=== PATIENT | female | born 1990 | race Caucasian/White ===

== ENCOUNTER 2020-08-21 18:38 | Emergency (ER) | payer MEDICAID ==
[~2020-08-21] VITALS: Ht 167.6 cm; Wt 127.0 kg
[2020-08-21 18:46] VITALS: BP 132/80
[2020-08-21] MEDS ORDERED: KETOROLAC 30 MG/ML VIAL IM ONE (20:05)
[2020-08-21 21:55] VITALS: BP 131/75
== END 2020-08-21 21:55 | disposition home or self-care (01) ==
LOC: MED 18:38
DX: R10.2 Pelvic and perineal pain (principal); N83.209 Unspecified ovarian cyst, unspecified side; N80.9 Endometriosis, unspecified; Z98.890 Other specified postprocedural states
CPT/HCPCS: 76856; 81002; 81025; 96372; 99284; J1885; Q0092

== ENCOUNTER 2020-09-04 06:04 | Emergency (ER) | payer MEDICAID ==
[~2020-09-04] VITALS: Ht 165.1 cm; Wt 135.6 kg
[2020-09-04 06:15] VITALS: BP 124/82
--- NOTE | 2020-09-04 06:36 | NUR ---
29 Y/O F PRESENTS TO ED C/O NAUSEA X 3 DAYS. PT STATES THAT SHE ONLY VOMITED ONCE IN THAT 3 DAYS. DENIES TAKING ANY OTC MEDICATIONS. DENIES PAIN DURING ASSESSMENT. ABD SOFT, NON TENDER. RR EVEN AND UNLABORED. VSS. MHX: ECTOPIC , OVARIAN CYST, ASTHMA NKA
[2020-09-04] MEDS ORDERED: ONDANSETRON 4 MG ODT PO ONE (06:40)
--- NOTE | 2020-09-04 07:13 | NUR ---
SAKSHI NOVEL SWAB COLLECTED AND WALKED OVER TO LAB.
--- NOTE | 2020-09-04 07:18 | NUR ---
REPORT GIVEN TO ISABELLA NDIAYE FOR CONTINUITY OF CARE.
[2020-09-04 07:51] VITALS: BP 124/82
--- NOTE | 2020-09-04 07:51 | NUR ---
Patient discharged with v/s stable. Written and verbal after care instructions about nausea given and explained. Patient alert, oriented and verbalized understanding of instructions. Ambulatory with steady gait. All questions addressed prior to discharge. ID band removed. Patient advised to follow up with PMD. Rx of zofran given. Patient educated on indication of medication including possible reaction and side effects. Opportunity to ask questions provided and answered.
== END 2020-09-04 07:50 | disposition home or self-care (01) ==
LOC: MED 06:04
DX: R11.0 Nausea (principal); R43.8 Other disturbances of smell and taste; Z20.828 Contact with and (suspected) exposure to other viral communicable diseases
CPT/HCPCS: 81002; 81025; 99283; Q0162; U0003

== ENCOUNTER 2020-10-16 03:40 | Emergency (ER) | payer MEDICAID ==
[~2020-10-16] VITALS: Ht 167.6 cm; Wt 137.9 kg
[2020-10-16 03:56] VITALS: BP 118/68
--- NOTE | 2020-10-16 04:03 | NUR ---
PT AMBULATED TO RESTROOM W/ STEADY GAIT
--- NOTE | 2020-10-16 04:05 | NUR ---
URINE SAMPLE COLLECTED AT THIS TIME.
--- NOTE | 2020-10-16 04:05 | NUR ---
PT AMBULATED FROM RESTROOM TO ER BED 12 W/ STEADY GAIT.
--- NOTE | 2020-10-16 04:09 | NUR ---
29 Y/O FEMALE PRESENTED TO ED C/O OFF BALANCED PH. PT STATES SHE STARTED USING NEW SCENTED TOLIET PAPER AND THINKS HER PH IS OFF NOW. PT STATES SHE HAS A HX OF BACTERIAL VAGINOSIS , LAST EPISODE X 1 YR AGO. PT STATES SHE HAS NO DISCHARGE BUT DOES NOTE A FOUL ODOR . PT DENIES DYSURIA . PT STATES SHE DOES GET MILD PELVIC CRAMPING BUT DOES NOT CURRENTLY HAVE PAIN. PT IN BED, LOCKED AND IN LOWEST POSITION, HOB ELEVATED, SIDE RAIL X1. ERMD MADE AWARE OF PT STATUS. VSS. PMH: HYPOTHYROID , TUBAL PREG, OVARIAN CYST, ENDOMETRIOSIS NKA
--- NOTE | 2020-10-16 04:14 | NUR ---
ERMD AT BEDSIDE EVALUATING PT.
[2020-10-16 04:31] VITALS: BP 118/68
--- NOTE | 2020-10-16 04:31 | NUR ---
Patient discharged with v/s stable. Written and verbal after care instructions given and explained. Patient alert, oriented and verbalized understanding of instructions. Ambulatory with steady gait. All questions addressed prior to discharge. ID band removed. Patient advised to follow up with PMD. Rx of FLAGYL given. Patient educated on indication of medication including possible reaction and side effects. Opportunity to ask questions provided and answered.
== END 2020-10-16 04:31 | disposition home or self-care (01) ==
LOC: MED 03:40
DX: N89.8 Other specified noninflammatory disorders of vagina (principal); J45.909 Unspecified asthma, uncomplicated; Z71.6 Tobacco abuse counseling
CPT/HCPCS: 81002; 81025; 99281; 99283

== ENCOUNTER 2020-10-29 18:22 | Emergency (ER) | payer MEDICAID ==
[~2020-10-29] VITALS: Ht 167.6 cm; Wt 127.0 kg
[2020-10-29 18:54] VITALS: BP 121/83
[2020-10-29] MEDS ORDERED: KETOROLAC 30 MG/ML VIAL IM ONE (19:00)
--- NOTE | 2020-10-29 19:00 | NUR ---
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
[2020-10-29 19:28] VITALS: BP 121/83
== END 2020-10-29 19:28 | disposition home or self-care (01) ==
LOC: MED 18:22
DX: S39.012A Strain of muscle, fascia and tendon of lower back, initial encounter (principal); E03.9 Hypothyroidism, unspecified; J45.909 Unspecified asthma, uncomplicated; X58.XXXA Exposure to other specified factors, initial encounter; Y93.89 Activity, other specified; Y92.89 Other specified places as the place of occurrence of the external cause; Y99.8 Other external cause status
CPT/HCPCS: 96372; 99283; J1885

== ENCOUNTER 2021-02-13 19:44 | Emergency (ER) | payer MEDICAID ==
[~2021-02-13] VITALS: Ht 167.6 cm; Wt 141.1 kg
[2021-02-13 19:53] VITALS: BP 139/86
--- NOTE | 2021-02-13 20:00 | NUR ---
Pt ambulated to restroom w/ steady gait.
--- NOTE | 2021-02-13 20:06 | NUR ---
SEE COMPLETE ASSESSMENT
--- NOTE | 2021-02-13 20:10 | NUR ---
PT UNABLE TO VOID AT THIS TIME.
--- NOTE | 2021-02-13 20:14 | NUR ---
DR. MCNULTY AT BEDSIDE.
[2021-02-13] MEDS ORDERED: ONDANSETRON 4 MG/2 ML VIAL IVP ONE (20:20)
[2021-02-13] MEDS ORDERED: NACL 0.9% 1,000 ML IV ONE (20:20)
--- NOTE | 2021-02-13 20:40 | NUR ---
LABS DRAWN VIA IV START. BLOOD TAKEN TO THE LAB BY EMT.
[2021-02-13 20:55] LABS: BASOPHILS % (AUTO) 0.4 % (0.0-2.0); EOSINOPHILS # (AUTO) 0.3 K/uL (0-0.4); EOSINOPHILS % (AUTO) 3.6 % (0.0-4.0); HEMATOCRIT 36.3 % (36-48); LYMPHOCYTES # (AUTO) 1.6 K/uL (2.5-16.5); LYMPHOCYTES % (AUTO) 22.3 % (20.5-51.1); MEAN CORPUSCULAR HEMOGLOBIN 29 pg (27-31); MEAN CORPUSCULAR HGB CONC 33 g/dL (33-37); MONOCYTES # (AUTO) 0.5 K/uL (0.8-1.0); NEUTROPHILS # (AUTO) 4.8 K/uL (1.8-7.7); NEUTROPHILS % (AUTO) 66.7 % (42.2-75.2); PLATELET COUNT (AUTO) 293 K/uL (140-450); RED BLOOD CELL COUNT(AUTO) 4.22 MIL/uL (4.20-5.40); RED CELL DISTRIBUTION WIDTH 14.6 % (11.6-13.7); WHITE BLOOD COUNT (AUTO) 7.1 K/uL (4.8-10.8)
[2021-02-13 21:08] LABS: ALBUMIN 3.2 g/dL (3.4-5.0); ANION GAP 11.6 (8-16); CARBON DIOXIDE 27.3 mmol/L (21-32); CREATININE 0.8 mg/dL (0.6-1.3); POTASSIUM 3.9 mmol/L (3.5-5.1); TOTAL BILIRUBIN 0.3 mg/dL (0.0-1.0)
--- NOTE | 2021-02-13 21:14 | NUR ---
PT STILL UNABLE TO VOID AT THIS TIME. FLUID BOLUS RUNNING.
--- NOTE | 2021-02-13 21:41 | NUR ---
PT AMBULATORY TO RESTROOM TO PROVIDE URINE SPECIMEN
--- NOTE | 2021-02-13 21:42 | NUR ---
PT REPORTS FEELING LESS DIZZINESS BUT ENDORSES A MINOR HEADACHE AT THIS TIME. ERMD MADE AWARE.
--- NOTE | 2021-02-13 22:00 | NUR ---
PT PROVIDED URINE SPECIMEN AT THIS TIME BUT THERE WAS NOT ENOUGH URINE FOR AN UA. URINE DIPSTICK COMPLETED INSTEAD. KEV MCNULTY MADE AWARE.
[2021-02-13] MEDS ORDERED: KETOROLAC 30 MG/ML VIAL IVP ONE (22:05)
--- NOTE | 2021-02-13 22:37 | NUR ---
PT REPORTS 0/10 PAIN AND FEELING BETTER. WILL UPDATE ERMD.
[2021-02-13 23:00] VITALS: BP 105/52
--- NOTE | 2021-02-13 23:00 | NUR ---
IV removed, catheter intact and site benign. Applied folded 4x4 gauze and tape to stop bleeding.
--- NOTE | 2021-02-13 23:01 | NUR ---
Patient discharged with v/s stable. Written and verbal after care instructions given and explained. Patient verbalized understanding. Ambulatory with steady gait. All questions addressed prior to discharge. Advised to follow up with PMD.
== END 2021-02-13 23:00 | disposition home or self-care (01) ==
LOC: MED 19:44
DX: E86.0 Dehydration (principal); R11.0 Nausea; J45.909 Unspecified asthma, uncomplicated; E07.9 Disorder of thyroid, unspecified
CPT/HCPCS: 36415; 80053; 81002; 81025; 85025; 93005; 96361; 96374; 96375; 99284; J1885; J2405; J7030

== ENCOUNTER 2021-02-19 14:23 | Emergency (ER) | payer MEDICAID ==
[~2021-02-19] VITALS: Ht 167.6 cm; Wt 139.3 kg
[2021-02-19 14:33] VITALS: BP 114/54
--- NOTE | 2021-02-19 14:34 | NUR ---
PT AMBULATED TO BED 9 WITH STEADY GAIT.
--- NOTE | 2021-02-19 14:35 | NUR ---
30 F returning to the ED from visit one week ago with the same complaints of lightheaded and dizziness this time with increased nausea. She denies fever, chills, diarrhea, chest and abd pain. Pt reports relief when she eats. C/o L ear tinnunitus a few days ago. surghx: tubal pmh: endometriosis, PCOS, asthma NKA
--- NOTE | 2021-02-19 14:40 | NUR ---
ERPA at bedside.
[2021-02-19] MEDS ORDERED: NACL 0.9% 500 ML IV ONE (14:55)
[2021-02-19] MEDS ORDERED: ONDANSETRON 4 MG/2 ML VIAL IVP ONE (14:55)
[2021-02-19 15:08] LABS: BASOPHILS % (AUTO) 0.5 % (0.0-2.0); EOSINOPHILS # (AUTO) 0.3 K/uL (0-0.4); EOSINOPHILS % (AUTO) 3.7 % (0.0-4.0); HEMATOCRIT 37.9 % (36-48); HEMOGLOBIN 12.5 g/dL (12.0-16.0); LYMPHOCYTES # (AUTO) 2.3 K/uL (2.5-16.5); LYMPHOCYTES % (AUTO) 30.6 % (20.5-51.1); MEAN CORPUSCULAR HEMOGLOBIN 28 pg (27-31); MEAN CORPUSCULAR HGB CONC 33 g/dL (33-37); MEAN CORPUSCULAR VOLUME 86.2 fL (80-94); MONOCYTES # (AUTO) 0.7 K/uL (0.8-1.0); MONOCYTES % (AUTO) 8.8 % (1.7-9.3); NEUTROPHILS # (AUTO) 4.3 K/uL (1.8-7.7); NEUTROPHILS % (AUTO) 56.4 % (42.2-75.2); PLATELET COUNT (AUTO) 350 K/uL (140-450); RED CELL DISTRIBUTION WIDTH 14.5 % (11.6-13.7); WHITE BLOOD COUNT (AUTO) 7.6 K/uL (4.8-10.8)
[2021-02-19] MEDS ORDERED: MECLIZINE 25 MG TAB PO ONE (15:15)
[2021-02-19 15:21] LABS: ANION GAP 13.7 (8-16); CARBON DIOXIDE 26.4 mmol/L (21-32); CREATININE 0.7 mg/dL (0.6-1.3); POTASSIUM 4.1 mmol/L (3.5-5.1)
[2021-02-19 15:28] LABS: ALBUMIN 3.4 g/dL (3.4-5.0); TOTAL BILIRUBIN 0.2 mg/dL (0.0-1.0)
[2021-02-19] MEDS ORDERED: MECL-303 PO (16:07)
[2021-02-19] MEDS ORDERED: NAPR-54 PO (16:16)
[2021-02-19] MEDS ORDERED: ONDA4TAB PO (16:16)
[2021-02-19 16:28] VITALS: BP 107/63
--- NOTE | 2021-02-19 16:28 | NUR ---
Patient discharged with v/s stable. Written and verbal after care instructions given and explained. Patient alert, oriented and verbalized understanding of instructions. Ambulatory with steady gait. All questions addressed prior to discharge. ID band removed. Patient advised to follow up with PMD. Rx of Antivert, Naprosyn, and Zofran given. Patient educated on indication of medication including possible reaction and side effects. Opportunity to ask questions provided and answered.
== END 2021-02-19 16:28 | disposition home or self-care (01) ==
LOC: MED 14:23
DX: R42 Dizziness and giddiness (principal); J45.909 Unspecified asthma, uncomplicated; E03.9 Hypothyroidism, unspecified; Z79.899 Other long term (current) drug therapy
CPT/HCPCS: 36415; 80053; 81002; 81025; 84702; 85025; 93005; 96361; 96374; 99284; J2405; J7030; J8597

== ENCOUNTER 2021-08-16 19:11 | Emergency (ER) | payer MEDICAID ==
[~2021-08-16] VITALS: Ht 167.6 cm; Wt 148.9 kg
[~2021-08-16 19:11] MED LIST: MECL-303 PO; NAPR-54 PO; ONDA4TAB PO
[2021-08-16 19:21] VITALS: BP 122/71
--- NOTE | 2021-08-16 19:24 | NUR ---
TO LOBBY A/W BED AMBULATORY
--- NOTE | 2021-08-16 20:25 | NUR ---
SEEN AND EXAMINED BY KEV WITH ORDERS AND CARRIED OUT
[2021-08-16] MEDS ORDERED: IBUPROFEN 600 MG TAB PO ONE (20:35)
[2021-08-16 21:05] LABS: BASOPHILS % (AUTO) 0.4 % (0.0-2.0); EOSINOPHILS # (AUTO) 0.3 K/uL (0-0.4); EOSINOPHILS % (AUTO) 3.5 % (0.0-4.0); HEMATOCRIT 37.4 % (36-48); HEMOGLOBIN 12.2 g/dL (12.0-16.0); LYMPHOCYTES # (AUTO) 2.4 K/uL (2.5-16.5); LYMPHOCYTES % (AUTO) 30.5 % (20.5-51.1); MEAN CORPUSCULAR HEMOGLOBIN 29 pg (27-31); MEAN CORPUSCULAR HGB CONC 33 g/dL (33-37); MEAN CORPUSCULAR VOLUME 88.3 fL (80-94); MONOCYTES # (AUTO) 0.6 K/uL (0.8-1.0); MONOCYTES % (AUTO) 7.8 % (1.7-9.3); NEUTROPHILS # (AUTO) 4.6 K/uL (1.8-7.7); NEUTROPHILS % (AUTO) 57.8 % (42.2-75.2); PLATELET COUNT (AUTO) 308 K/uL (140-450); RED BLOOD CELL COUNT(AUTO) 4.24 MIL/uL (4.20-5.40); RED CELL DISTRIBUTION WIDTH 14.5 % (11.6-13.7); WHITE BLOOD COUNT (AUTO) 7.9 K/uL (4.8-10.8)
[2021-08-16 21:11] LABS: APPEARANCE,URINE CLEAR (CLEAR); BILIRUBIN,URINE NEGATIVE (NEGATIVE); BLOOD, URINE NEGATIVE (NEGATIVE); COLOR,URINE YELLOW (YELLOW); LEUKOCYTE ESTERASE ,URINE NEGATIVE (NEGATIVE); NITRITE, URINE NEGATIVE (NEGATIVE); UGLUCOSE NEGATIVE (NEGATIVE)
[2021-08-16 21:29] LABS: ALBUMIN 3.3 g/dL (3.4-5.0); ANION GAP 10.7 (8-16); CARBON DIOXIDE 28.9 mmol/L (21-32); CREATININE 0.9 mg/dL (0.6-1.3); POTASSIUM 3.6 mmol/L (3.5-5.1); TOTAL BILIRUBIN 0.3 mg/dL (0.0-1.0)
[2021-08-16] MEDS ORDERED: IBUPROFEN 600 MG TAB ONE (22:22)
[2021-08-16] MEDS ORDERED: ONDA-24 SL (22:39)
[2021-08-16 22:48] VITALS: BP 119/78
--- NOTE | 2021-08-16 22:48 | NUR ---
Patient discharged with v/s stable. Written and verbal after care instructions given and explained. Patient alert, oriented and verbalized understanding of instructions. Ambulatory with steady gait. All questions addressed prior to discharge. ID band removed. Patient advised to follow up with PMD. Rx of ZOFRAN ODT given. Patient educated on indication of medication including possible reaction and side effects. Opportunity to ask questions provided and answered.
== END 2021-08-16 22:48 | disposition home or self-care (01) ==
LOC: MED 19:11
DX: R51.9 Headache, unspecified (principal); R42 Dizziness and giddiness; R11.0 Nausea; J45.909 Unspecified asthma, uncomplicated; E03.9 Hypothyroidism, unspecified; Z79.899 Other long term (current) drug therapy
CPT/HCPCS: 36415; 80053; 81003; 81025; 85025; 99283

== ENCOUNTER 2021-08-26 19:00 | Emergency (ER) | payer MEDICAID ==
[~2021-08-26] VITALS: Ht 167.6 cm; Wt 145.1 kg
[~2021-08-26 19:00] MED LIST changes: +ONDA-24 SL
[2021-08-26 19:11] VITALS: BP 153/92
--- NOTE | 2021-08-26 19:38 | NUR ---
PT RETURN FROM XRAY
--- NOTE | 2021-08-26 20:32 | NUR ---
PT AMB TO BED 11
--- NOTE | 2021-08-26 20:35 | NUR ---
PT. IS A 30 Y/O FEMALE THAT CAME INTO ED WITH C/O OF SWOLLEN TONSILS AND PAIN UNDER STERNUM. PT. STATES THAT SHE NOTICED THE SWOLLEN TONSILS AND PAIN UNDER HER STERNUM LAST NIGHT. PT. RATES PAIN AT 5/10 ON THE PAIN SCALE AT THIS TIME. WHEN ASKED TO DESCRIBE PAIN, PT. STATES IT IS LOCALIZED UNDER HER STERNUM AND "SHARP PAIN THAT COMES AND GOES." DENIES V/D/FEVER, ADMITS TO NAUSEA. SKIN IS PINK/WARM/DRY; AAOX4 WITH EVEN AND STEADY GAIT; HR EVEN AND REGULAR; PT DENIES ANY FEVER, CP, SOB, OR COUGH AT THIS TIME; VSS; PATIENT POSITIONED FOR COMFORT; HOB ELEVATED; BEDRAILS UP X2; BED DOWN. ER MD MADE AWARE OF PT STATUS. PMH:ASTHMA ALLERGIES: NKA
--- NOTE | 2021-08-26 22:44 | NUR ---
RAPID STREP SWAB COLLECTED AND HANDED TO CARRIE FROM LAB
[2021-08-26] MEDS ORDERED: IBUP-2213 PO (23:46)
[2021-08-27] MEDS ORDERED: ALBU0.0912 INH (00:04)
[2021-08-27 00:09] VITALS: BP 150/95
--- NOTE | 2021-08-27 00:09 | NUR ---
Patient discharged with v/s stable. Written and verbal after care instructions given and explained. Patient alert, oriented and verbalized understanding of instructions. Ambulatory with steady gait. All questions addressed prior to discharge. ID band removed. Patient advised to follow up with PMD. Rx of ALBUTEROOL SULFATE AND IBUPROFEN given. Patient educated on indication of medication including possible reaction and side effects. Opportunity to ask questions provided and answered.
== END 2021-08-27 00:09 | disposition home or self-care (01) ==
LOC: MED 19:00
DX: J02.9 Acute pharyngitis, unspecified (principal); R07.9 Chest pain, unspecified; R03.0 Elevated blood-pressure reading, without diagnosis of hypertension; J45.909 Unspecified asthma, uncomplicated; E07.9 Disorder of thyroid, unspecified
CPT/HCPCS: 71045; 87081; 93005; 99285

== ENCOUNTER 2021-10-08 18:11 | Emergency (ER) | payer MEDICAID ==
[~2021-10-08] VITALS: Ht 165.1 cm; Wt 147.0 kg
[~2021-10-08 18:11] MED LIST changes: +ALBU0.0912 INH; +IBUP-2213 PO; +ONDA-188 SL; -ONDA-24 SL
[2021-10-08 18:33] VITALS: BP 154/92
--- NOTE | 2021-10-08 19:05 | NUR ---
PT BEING ASSESSED IN TRIAGE ROOM BY MD AT THIS TIME
[2021-10-08] MEDS ORDERED: OFLO10SO16 LEFT EAR (19:06)
[2021-10-08] MEDS ORDERED: NAPR-54 PO (19:06)
[2021-10-08] MEDS ORDERED: KETOROLAC 30 MG/ML VIAL ONE (19:08)
[2021-10-08] MEDS ORDERED: KETOROLAC 30 MG/ML VIAL IM ONE (19:10)
--- NOTE | 2021-10-08 19:12 | NUR ---
30 Y/O F BIB AUNT FROM HOME, C/O R EAR PAIN, HOT TO TOUCH, TUGGING SENSATION THAT STRATED TODAY. PT STATES SHE HAS RINGING IN R EAR. ALSO C/O NAUSEA. DENIES SORE THROAT AND COUGH. DENIES N/V/D; SKIN IS PINK/WARM/DRY; AAOX4 WITH EVEN AND STEADY GAIT; LUNGS CLEAR BL; HR EVEN AND REGULAR; PT DENIES ANY FEVER, CP, SOB, OR COUGH AT THIS TIME; PATIENT STATES PAIN OF 9/10 AT THIS TIME; VSS; ER MD MADE AWARE OF PT STATUS. PMH: ASTHMA NKA MED: ALBUTEROL
[2021-10-08 19:25] VITALS: BP 120/54
--- NOTE | 2021-10-08 19:25 | NUR ---
Patient discharged with v/s stable. Written and verbal after care instructions given and explained. Patient alert, oriented and verbalized understanding of instructions. Ambulatory with steady gait. All questions addressed prior to discharge. ID band removed. Patient advised to follow up with PMD. Rx of Naproxen and Ofloxacin given. Patient educated on indication of medication including possible reaction and side effects. Opportunity to ask questions provided and answered.
[2021-10-09] MEDS ORDERED: COROTSOL RIGHT EAR (12:31)
== END 2021-10-08 19:25 | disposition home or self-care (01) ==
LOC: MED 18:11
DX: H60.91 Unspecified otitis externa, right ear (principal); J45.909 Unspecified asthma, uncomplicated; E03.9 Hypothyroidism, unspecified; Z79.899 Other long term (current) drug therapy; Z98.890 Other specified postprocedural states
CPT/HCPCS: 96372; 99283; J1885

== ENCOUNTER 2021-10-09 10:54 | Emergency (ER) | payer MEDICAID ==
[~2021-10-09] VITALS: Ht 165.1 cm; Wt 146.5 kg
[~2021-10-09 10:54] MED LIST changes: +OFLO10SO16 LEFT EAR
[2021-10-09 10:57] VITALS: BP 153/86
[2021-10-09] MEDS ORDERED: COROTSOL RIGHT EAR (12:31)
[2021-10-09] MEDS ORDERED: KETOROLAC 30 MG/ML VIAL IM ONE (13:05)
[2021-10-09 13:25] VITALS: BP 141/89
== END 2021-10-09 13:25 | disposition home or self-care (01) ==
LOC: MED 10:54
DX: H60.91 Unspecified otitis externa, right ear (principal); J45.909 Unspecified asthma, uncomplicated; E03.9 Hypothyroidism, unspecified; Z79.899 Other long term (current) drug therapy; Z79.1 Long term (current) use of non-steroidal anti-inflammatories (NSAID); Z79.51 Long term (current) use of inhaled steroids
CPT/HCPCS: 96372; 99283; J1885

== ENCOUNTER 2022-04-19 17:07 | Emergency (ER) | payer MEDICAID ==
[~2022-04-19] VITALS: Ht 167.6 cm; Wt 125.2 kg
[~2022-04-19 17:07] MED LIST changes: +COROTSOL RIGHT EAR; -OFLO10SO16 LEFT EAR
[2022-04-19 17:23] VITALS: BP 121/75
[2022-04-19] MEDS ORDERED: IBUP-2213 PO (18:46)
[2022-04-19] MEDS ORDERED: COROTSOL RIGHT EAR (18:46)
[2022-04-19 18:56] VITALS: BP 121/75
== END 2022-04-19 18:56 | disposition home or self-care (01) ==
LOC: MED 17:07
DX: H60.501 Unspecified acute noninfective otitis externa, right ear (principal); J45.909 Unspecified asthma, uncomplicated; E03.9 Hypothyroidism, unspecified; Z79.899 Other long term (current) drug therapy
CPT/HCPCS: 99283

== ENCOUNTER 2022-05-24 22:33 | Emergency (ER) | payer MEDICAID ==
[~2022-05-24] VITALS: Ht 167.6 cm; Wt 121.1 kg
[2022-05-24 22:51] VITALS: BP 135/71
--- NOTE | 2022-05-24 22:53 | NUR ---
to lobby a/w bed ambulatory
[2022-05-24 23:37] LABS: BASOPHILS % (AUTO) 0.3 % (0.0-2.0); EOSINOPHILS # (AUTO) 0.1 K/uL (0-0.4); EOSINOPHILS % (AUTO) 1.7 % (0.0-4.0); HEMATOCRIT 39.3 % (36-48); HEMOGLOBIN 12.8 g/dL (12.0-16.0); LYMPHOCYTES # (AUTO) 2.9 K/uL (2.5-16.5); LYMPHOCYTES % (AUTO) 38.4 % (20.5-51.1); MEAN CORPUSCULAR HEMOGLOBIN 28 pg (27-31); MEAN CORPUSCULAR HGB CONC 33 g/dL (33-37); MEAN CORPUSCULAR VOLUME 85.8 fL (80-94); MONOCYTES # (AUTO) 0.4 K/uL (0.8-1.0); MONOCYTES % (AUTO) 5.7 % (1.7-9.3); NEUTROPHILS % (AUTO) 53.9 % (42.2-75.2); PLATELET COUNT (AUTO) 288 K/uL (140-450); RED BLOOD CELL COUNT(AUTO) 4.58 MIL/uL (4.20-5.40); RED CELL DISTRIBUTION WIDTH 14.9 % (11.6-13.7); WHITE BLOOD COUNT (AUTO) 7.5 K/uL (4.8-10.8)
[2022-05-25 00:22] LABS: APPEARANCE,URINE CLEAR (CLEAR); BILIRUBIN,URINE NEGATIVE (NEGATIVE); BLOOD, URINE TRACE-I (NEGATIVE); COLOR,URINE YELLOW (YELLOW); LEUKOCYTE ESTERASE ,URINE NEGATIVE (NEGATIVE); NITRITE, URINE NEGATIVE (NEGATIVE); UGLUCOSE NEGATIVE (NEGATIVE)
--- NOTE | 2022-05-25 00:33 | NUR ---
PT TAKEN TO BED 8
[2022-05-25 00:52] LABS: RBC,URINE 0-5 /HPF (0-5); WBC,URINE 0-5 /HPF (0-5)
[2022-05-25] MEDS ORDERED: CEPH500T PO (01:17)
[2022-05-25] MEDS ORDERED: PHEN-1877 PO (01:17)
[2022-05-25 01:42] VITALS: BP 107/61
--- NOTE | 2022-05-25 01:43 | NUR ---
Patient discharged with VS WNL. Written and verbal after care instructions given and explained about Dysuria. Patient alert, oriented and verbalized understanding of instructions. Ambulatory with steady gait. All questions addressed prior to discharge. ID band removed. Patient advised to follow up with PMD. Rx of cephalexin and pyridium given. Patient educated on indication of medication including possible reaction and side effects. Opportunity to ask questions provided and answered.
== END 2022-05-25 01:43 | disposition home or self-care (01) ==
LOC: MED 22:33
DX: N39.0 Urinary tract infection, site not specified (principal); E03.9 Hypothyroidism, unspecified; J45.909 Unspecified asthma, uncomplicated
CPT/HCPCS: 36415; 81001; 81025; 84702; 85025; 86900; 86901; 87086; 99283

== ENCOUNTER 2022-11-07 08:30 | Emergency (ER) | payer MEDICAID ==
[~2022-11-07] VITALS: Ht 167.6 cm; Wt 114.8 kg
[~2022-11-07 08:30] MED LIST changes: +CEPH500T PO; +PHEN-1877 PO
[2022-11-07 08:40] VITALS: BP 105/65
--- NOTE | 2022-11-07 08:41 | NUR ---
PT AMBULATED TO BED 08 WITH STEADY/EVEN GAIT.
--- NOTE | 2022-11-07 08:45 | NUR ---
32/F C/O PELVIC PAIN, NAUSEA, FATIGUE X 1 WEEK. PATIENT A&OX4, AMBULATORY, REPORTS PAIN ACROSS PELVIC REGION, 5/10, PULLING/SHARP, NON-RADIATING X 1 WEEK. ENDORSES NAUSEA WITHOUT VOMITING. DENIES VAGINAL BLEEDING/DISCHARGE, DYSURIA, DIARRHEA, CONSTIPATION, CHILLS. REPORTS POSSIBLE . LMP: 10/08/22. PT PLACED IN GOWN, BED LOCKED IN LOWEST POSITION, SIDE RAILS X 1. PMH: PCS, ENDOMETRIOSIS, TUBAL MEDS: DENIES NKDA SX: TUBAL LIGATION, GASTRIC SLEEVE
[2022-11-07] MEDS ORDERED: ONDANSETRON 4 MG ODT PO ONE (09:00)
--- NOTE | 2022-11-07 09:18 | NUR ---
US tech at bedside
[2022-11-07 09:25] LABS: APPEARANCE,URINE SL CLOUDY (CLEAR); BILIRUBIN,URINE NEGATIVE (NEGATIVE); BLOOD, URINE TRACE-I (NEGATIVE); COLOR,URINE YELLOW (YELLOW); LEUKOCYTE ESTERASE ,URINE 2+ (NEGATIVE); NITRITE, URINE NEGATIVE (NEGATIVE); UGLUCOSE NEGATIVE (NEGATIVE)
[2022-11-07 09:37] LABS: OTHER CASTS, URINE None Seen /LPF (None Seen)
[2022-11-07 09:47] LABS: BASOPHILS % (AUTO) 0.4 % (0.0-2.0); EOSINOPHILS # (AUTO) 0.2 K/uL (0-0.4); EOSINOPHILS % (AUTO) 2.7 % (0.0-4.0); HEMATOCRIT 36.6 % (36-48); HEMOGLOBIN 11.9 g/dL (12.0-16.0); LYMPHOCYTES # (AUTO) 1.9 K/uL (2.5-16.5); LYMPHOCYTES % (AUTO) 24.5 % (20.5-51.1); MEAN CORPUSCULAR HEMOGLOBIN 28 pg (27-31); MEAN CORPUSCULAR HGB CONC 32 g/dL (33-37); MEAN CORPUSCULAR VOLUME 87.4 fL (80-94); MONOCYTES # (AUTO) 0.7 K/uL (0.8-1.0); MONOCYTES % (AUTO) 8.4 % (1.7-9.3); PLATELET COUNT (AUTO) 143 K/uL (140-450); RED BLOOD CELL COUNT(AUTO) 4.19 MIL/uL (4.20-5.40); RED CELL DISTRIBUTION WIDTH 15.7 % (11.6-13.7); WHITE BLOOD COUNT (AUTO) 7.8 K/uL (4.8-10.8)
[2022-11-07 10:03] LABS: ANION GAP 7.1 (8-16); CARBON DIOXIDE 29.7 mmol/L (21-32); CREATININE 0.7 mg/dL (0.6-1.3); POTASSIUM 3.8 mmol/L (3.5-5.1)
[2022-11-07] MEDS ORDERED: ONDA-188 PO (10:08)
[2022-11-07] MEDS ORDERED: NITR100C7 PO (10:08)
--- NOTE | 2022-11-07 10:19 | NUR ---
Patient discharged with v/s stable. Written and verbal after care instructions given and explained for Urinary Tract Infection. Patient alert, oriented and verbalized understanding of instructions. Ambulatory with steady gait. All questions addressed prior to discharge. ID band removed. Patient advised to follow up with PMD. Rx of Macrobid, Zofran ODT given. Patient educated on indication of medication including possible reaction and side effects. Opportunity to ask questions provided and answered. Off-work note given for 11/07/22. Copies of US, CBC/CMP, UA given to patient.
== END 2022-11-07 10:19 | disposition home or self-care (01) ==
LOC: MED 08:30
DX: N39.0 Urinary tract infection, site not specified (principal); E03.9 Hypothyroidism, unspecified; J45.909 Unspecified asthma, uncomplicated; Z98.51 Tubal ligation status
CPT/HCPCS: 36415; 76830; 80048; 81001; 81025; 85025; 87086; 93976; 99284; Q0092; Q0162

== ENCOUNTER 2022-11-22 07:44 | Emergency (ER) | payer MEDICAID ==
[~2022-11-22] VITALS: Ht 167.6 cm; Wt 113.9 kg
[~2022-11-22 07:44] MED LIST changes: +NITR100C7 PO; +ONDA-188 PO
[2022-11-22 07:51] VITALS: BP 122/77
--- NOTE | 2022-11-22 07:53 | NUR ---
32 y/o female, c/o cough, cp with cough, chills, subjective fever, sore throat, ear ache on right side for 4 days. denies anyone sick at home at this time. a&ox4, ambulates with steady gait. lungs clear bl, heart sounds even and regular. denies dysuria, hematuria, n/v/d. 5/10 pain at this time. pmh: denies nka med: denies
--- NOTE | 2022-11-22 08:37 | NUR ---
BEBETO AND FLU SWABS COLLECTED AND WALKED TO LAB
--- NOTE | 2022-11-22 10:20 | NUR ---
PT AMBULATED TO BED 3
--- NOTE | 2022-11-22 10:28 | NUR ---
PATIENT PRESENTS TO ED WITH SORE THROAT . DENIES N/V/D; SKIN IS PINK/WARM/DRY; AAOX4 WITH EVEN AND STEADY GAIT; LUNGS CLEAR BL; HR EVEN AND REGULAR; PATIENT STATES PAIN OF 5/10 AT THIS TIME; VSS; PATIENT POSITIONED FOR COMFORT; HOB ELEVATED; BEDRAILS UP X2; BED DOWN. ER MD MADE AWARE OF PT STATUS. PATIENT REQUESTING FOR FOOD WELL.
[2022-11-22] MEDS ORDERED: DICYCLOMINE HCL LIQUID 20 MG, ALUMINUM HYD/MAG/SIMETHICONE 30 ML, LIDOCAINE VISCOUS 2% ... PO ONE ×3 (10:30)
[2022-11-22] MEDS ORDERED: DICYCLOMINE HCL LIQUID 10 MG/5 ML UDC ONE (10:44)
[2022-11-22] MEDS ORDERED: ALUMINUM HYD/MAG/SIMETHICONE 30 ML UDC ONE (10:44)
--- NOTE | 2022-11-22 12:30 | NUR ---
PATIENT ASLEEP IN BED, NO S/S OF ACUTE DISTRESS NOTED
--- NOTE | 2022-11-22 12:52 | NUR ---
PATIENT PROVIDED WITH SNACK PACK. PATIENT WITH NO S/S OF ACUTE DISTRESS, PLAN OF CARE ONGOING
[2022-11-22 14:33] VITALS: BP 132/85
== END 2022-11-22 14:34 | disposition home or self-care (01) ==
LOC: MED 07:44
DX: J06.9 Acute upper respiratory infection, unspecified (principal); Z20.822 Contact with and (suspected) exposure to COVID-19; H92.03 Otalgia, bilateral
CPT/HCPCS: 87081; 99283

== ENCOUNTER 2023-05-09 17:07 | Emergency (ER) | payer MEDICAID ==
--- NOTE | 2023-05-09 18:00 | NUR ---
Pt. called in ER lobby and no answer received. Called pt.'s name outside ER and no answer received. Checked bathroom and pt. was not found. Pt. left ER without triage. ER MD notified.
== END 2023-05-09 18:00 | disposition left against medical advice (07) ==
LOC: MED 17:07
DX: N93.9 Abnormal uterine and vaginal bleeding, unspecified (principal); Z53.21 Procedure and treatment not carried out due to patient leaving prior to being seen by health care provider

== ENCOUNTER 2023-05-17 17:28 | Emergency (ER) | payer MEDICAID ==
[~2023-05-17] VITALS: Ht 167.6 cm; Wt 104.3 kg
[2023-05-17 17:36] VITALS: BP 122/63; PULSE 72; RESP 16; TEMP 97.9; O2SAT 98
[2023-05-17 18:14] LABS: BASOPHILS % (AUTO) 0.6 % (0.0-2.0); EOSINOPHILS # (AUTO) 0.1 K/uL (0-0.4); EOSINOPHILS % (AUTO) 1.7 % (0.0-4.0); HEMATOCRIT 38.2 % (36-48); HEMOGLOBIN 12.8 g/dL (12.0-16.0); LYMPHOCYTES # (AUTO) 1.7 K/uL (2.5-16.5); LYMPHOCYTES % (AUTO) 29.4 % (20.5-51.1); MEAN CORPUSCULAR HEMOGLOBIN 29 pg (27-31); MEAN CORPUSCULAR HGB CONC 34 g/dL (33-37); MEAN CORPUSCULAR VOLUME 86.3 fL (80-94); MONOCYTES # (AUTO) 0.7 K/uL (0.8-1.0); MONOCYTES % (AUTO) 11.3 % (1.7-9.3); NEUTROPHILS # (AUTO) 3.3 K/uL (1.8-7.7); PLATELET COUNT (AUTO) 277 K/uL (140-450); RED BLOOD CELL COUNT(AUTO) 4.43 MIL/uL (4.20-5.40); RED CELL DISTRIBUTION WIDTH 15.3 % (11.6-13.7); WHITE BLOOD COUNT (AUTO) 5.8 K/uL (4.8-10.8)
[2023-05-17 18:16] LABS: APPEARANCE,URINE CLEAR (CLEAR); BILIRUBIN,URINE NEGATIVE (NEGATIVE); BLOOD, URINE NEGATIVE (NEGATIVE); COLOR,URINE YELLOW (YELLOW); LEUKOCYTE ESTERASE ,URINE NEGATIVE (NEGATIVE); NITRITE, URINE NEGATIVE (NEGATIVE); UGLUCOSE NEGATIVE (NEGATIVE)
[2023-05-17] MEDS ORDERED: ONDANSETRON 4 MG ODT PO ONE (18:20)
[2023-05-17] MEDS ORDERED: ACETAMINOPHEN EXTRA STRENGTH 500 MG TAB PO ONE (18:20)
--- NOTE | 2023-05-17 18:27 | NUR ---
PT AMBULATED TO BED 6
[2023-05-17 18:28] LABS: ALBUMIN 3.4 g/dL (3.4-5.0); ANION GAP 10.6 (8-16); CARBON DIOXIDE 29.5 mmol/L (21-32); CREATININE 0.7 mg/dL (0.6-1.3); POTASSIUM 4.1 mmol/L (3.5-5.1); TOTAL BILIRUBIN 0.3 mg/dL (0.0-1.0)
[2023-05-17 18:40] VITALS: O2SAT 98
--- NOTE | 2023-05-17 18:40 | NUR ---
32YO FEMALE PT C/O CRAMPING LOWER ABD PAIN AND VAGINAL SPOTTING X1WEEK. REPORTS SUDDEN INTERMITTENT ONSETS. +NAUSEA. DENIES V/D,CHEST PAIN,FEVER, CHILLS OR TAKING MEDICATION. PT AAOX4, HOB POSITIONED PER COMFORT HX: ENDOMETRIOSIS NKA
--- NOTE | 2023-05-17 19:17 | NUR ---
REPORT GIVEN TO CARLITA MASON. TRANSFER OF CARE AT THIS TIME
--- NOTE | 2023-05-17 19:30 | NUR ---
pt on bed. A/oX4. not in distress. on monitor
[2023-05-17] MEDS ORDERED: ONDA-188 PO (19:33)
[2023-05-17] MEDS ORDERED: ACET-10509 PO (19:33)
[2023-05-17 19:38] VITALS: BP 120/65; PULSE 72; RESP 16; TEMP 97.9; O2SAT 98
--- NOTE | 2023-05-17 19:38 | NUR ---
Patient discharged with v/s stable. Written and verbal after care instructions given and explained. Patient alert, oriented and verbalized understanding of instructions. Ambulatory with steady gait. All questions addressed prior to discharge. ID band removed. Patient advised to follow up with PMD. Rx given to pt. Patient educated on indication of medication including possible reaction and side effects. Opportunity to ask questions provided and answered.
== END 2023-05-17 19:38 | disposition home or self-care (01) ==
LOC: MED 17:28
DX: N83.201 Unspecified ovarian cyst, right side (principal); J45.909 Unspecified asthma, uncomplicated; E03.9 Hypothyroidism, unspecified; Z79.899 Other long term (current) drug therapy
CPT/HCPCS: 36415; 76856; 80053; 81003; 81025; 83690; 85025; 87491; 93976; 99284; Q0092; Q0162

== ENCOUNTER 2023-07-10 21:22 | Emergency (ER) | payer MEDICAID ==
[~2023-07-10] VITALS: Ht 167.6 cm; Wt 104.3 kg
[~2023-07-10 21:22] MED LIST changes: +ACET-10509 PO
[2023-07-10 21:57] VITALS: BP 128/81; PULSE 74; RESP 20; TEMP 98
[2023-07-10 22:59] LABS: APPEARANCE,URINE CLEAR (CLEAR); BILIRUBIN,URINE NEGATIVE (NEGATIVE); BLOOD, URINE 2+ (NEGATIVE); COLOR,URINE YELLOW (YELLOW); LEUKOCYTE ESTERASE ,URINE NEGATIVE (NEGATIVE); NITRITE, URINE NEGATIVE (NEGATIVE); PH,URINE 6.5 (5.0-9.0); PROTEIN,URINE NEGATIVE (NEGATIVE); UGLUCOSE NEGATIVE (NEGATIVE); UROBILINOGEN,URINE 0.2 EU/dL (0.2 - 1)
[2023-07-10 23:16] LABS: BASOPHILS % (AUTO) 0.4 % (0.0-2.0); EOSINOPHILS # (AUTO) 0.2 K/uL (0-0.4); EOSINOPHILS % (AUTO) 2.5 % (0.0-4.0); HEMATOCRIT 38.7 % (36-48); HEMOGLOBIN 12.6 g/dL (12.0-16.0); LYMPHOCYTES # (AUTO) 2.5 K/uL (2.5-16.5); LYMPHOCYTES % (AUTO) 32.4 % (20.5-51.1); MEAN CORPUSCULAR HEMOGLOBIN 29 pg (27-31); MEAN CORPUSCULAR HGB CONC 33 g/dL (33-37); MEAN CORPUSCULAR VOLUME 89.6 fL (80-94); MONOCYTES # (AUTO) 0.6 K/uL (0.8-1.0); MONOCYTES % (AUTO) 8.3 % (1.7-9.3); NEUTROPHILS # (AUTO) 4.4 K/uL (1.8-7.7); NEUTROPHILS % (AUTO) 56.4 % (42.2-75.2); PLATELET COUNT (AUTO) 308 K/uL (140-450); RED BLOOD CELL COUNT(AUTO) 4.32 MIL/uL (4.20-5.40); RED CELL DISTRIBUTION WIDTH 14.5 % (11.6-13.7); WHITE BLOOD COUNT (AUTO) 7.7 K/uL (4.8-10.8)
[2023-07-10 23:16] LABS: RBC,URINE 11-20 (MOD) /HPF (0-5); WBC,URINE 0-5 /HPF (0-5)
[2023-07-10 23:17] LABS: BACTERIA,URINE >30 (MANY) /HPF (None Seen); MUCUS,URINE 1+ /LPF (None Seen); SQUAMOUS EPITHELIAL CELL,UR 4-10 (MOD) /LPF (0-3 (FEW))
[2023-07-10 23:21] LABS: ALBUMIN 3.3 g/dL (3.4-5.0); ANION GAP 11.8 (8-16); CALCIUM 8.3 mg/dL (8.5-10.1); CARBON DIOXIDE 29.2 mmol/L (21-32); CREATININE 0.9 mg/dL (0.6-1.3); TOTAL BILIRUBIN 0.3 mg/dL (0.0-1.0); TOTAL PROTEIN, SERUM 7.8 g/dL (6.4-8.2)
[2023-07-11] MEDS ORDERED: KETOROLAC 30 MG/ML VIAL IM ONE (00:20)
[2023-07-11] MEDS ORDERED: MORPHINE SULFATE 4 MG/ML SYR IM ONE (03:10)
[2023-07-11] MEDS ORDERED: ACET-10509 PO (04:02)
[2023-07-11] MEDS ORDERED: IBUP-2213 PO (04:02)
[2023-07-11] MEDS ORDERED: DOXY-690 PO (17:19)
== END 2023-07-11 04:25 | disposition home or self-care (01) ==
LOC: MED 21:22
DX: N83.201 Unspecified ovarian cyst, right side (principal); E03.9 Hypothyroidism, unspecified; J45.909 Unspecified asthma, uncomplicated; Z79.899 Other long term (current) drug therapy; Z98.890 Other specified postprocedural states
CPT/HCPCS: 36415; 74176; 76856; 80053; 81001; 81025; 82150; 83690; 85025; 87086; 87491; 93976; 96372; 99285; J1885; J2270

== ENCOUNTER 2024-04-23 12:56 | Emergency (ER) | payer MEDICAID ==
[~2024-04-23] VITALS: Ht 167.6 cm; Wt 104.5 kg
[~2024-04-23 12:56] MED LIST changes: +DOXY-690 PO; +NAPR-337 PO; -NAPR-54 PO
[2024-04-23 13:21] VITALS: BP 122/82; PULSE 76; RESP 17; TEMP 98.2; O2SAT 98
[2024-04-23] MEDS ORDERED: BACI-418 TP (15:52)
[2024-04-23] MEDS: BACITRACIN OINT 500 UNITS/GM PKT TP ONE (16:02)
[2024-04-23 16:03] VITALS: BP 122/77; PULSE 60; RESP 18; TEMP 98; O2SAT 99
== END 2024-04-23 16:03 | disposition home or self-care (01) ==
LOC: MED 12:56
DX: Z48.02 Encounter for removal of sutures (principal); J45.909 Unspecified asthma, uncomplicated; Z86.39 Personal history of other endocrine, nutritional and metabolic disease; Z79.1 Long term (current) use of non-steroidal anti-inflammatories (NSAID); Z79.2 Long term (current) use of antibiotics; Z79.899 Other long term (current) drug therapy; X58.XXXD Exposure to other specified factors, subsequent encounter
CPT/HCPCS: 99282

== ENCOUNTER 2024-08-26 11:26 | Emergency (ER) | payer MEDICAID ==
[~2024-08-26] VITALS: Ht 167.6 cm; Wt 103.0 kg
[~2024-08-26 11:26] MED LIST changes: -ACET-10509 PO; +ACET500T99 PO; +BACI-418 TP
[2024-08-26 11:40] VITALS: BP 112/70; PULSE 66; RESP 15; TEMP 98; O2SAT 99
[2024-08-26] MEDS ORDERED: IBUP-2213 PO (12:57)
[2024-08-26] MEDS ORDERED: ATA25 PO (12:57)
[2024-08-26] MEDS: KETOROLAC 60 MG/2 ML VIAL IM ONE (13:16)
[2024-08-26 13:19] VITALS: BP 112/70; PULSE 66; RESP 15; TEMP 98; O2SAT 99
== END 2024-08-26 13:19 | disposition home or self-care (01) ==
LOC: MED 11:26
DX: R07.89 Other chest pain (principal); F41.9 Anxiety disorder, unspecified; J45.909 Unspecified asthma, uncomplicated; E03.9 Hypothyroidism, unspecified; Z90.49 Acquired absence of other specified parts of digestive tract; Z98.890 Other specified postprocedural states; Z79.899 Other long term (current) drug therapy
CPT/HCPCS: 71045; 93005; 96372; 99283; J1885